=== PATIENT | male | born 1995 | race Caucasian/White ===

== ENCOUNTER 2016-09-03 17:18 | Emergency (ER) | payer OTHER ==
--- NOTE | 2016-09-03 17:31 | EDPHY ---
H & P Time Seen by Provider: 09/03/16 17:31 - Medical/Surgical History Hx Asthma: No Hx Chronic Respiratory Disease: No Hx Diabetes: No Hx Cardiac Disease: No Hx Renal Disease: No Hx Cirrhosis: No Hx Alcoholism: No Hx HIV/AIDS: No Hx Splenectomy or Spleen Trauma: No Other PMH: DENIES - Social History Smoking Status: Never smoked Constitutional: Initial Vital Signs Temperature (C) 34.7 C L 09/03/16 17:18 Heart Rate 71 09/03/16 17:18 Respiratory Rate 16 09/03/16 17:18 Blood Pressure 124/69 H 09/03/16 17:18 O2 Sat (%) 96 09/03/16 17:18 O2 Delivery Mode Room Air Allergies/Adverse Reactions: No Known Allergies Allergy (Unverified 04/16/15 03:28) Home Medications: Medication Instructions Recorded NK [No Known Home Meds] 04/16/15 Medical Decision Making ED Course/Re-evaluation: CHIEF COMPLAINT: alcohol intoxication HISTORY OF PRESENT ILLNESS: 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 Patient was found by bystanders to be severely intoxicated and therefore they called EMS system. He is responsive to pain only and unable to answer questions. He is covered in emesis and smells of alcohol. No further history known. REVIEW OF SYSTEMS: Unobtainable secondary to patient condition. PHYSICAL EXAM: General Appearance: somnolent, difficult to rouse, covered in emesis. Head: Atraumatic without obvious injury Eyes: Pupils equal, round, sluggishly reactive to light and accommodation, no trauma, no injection. Ears: Clear bilaterally, no perforation, normal landmarks Nose: Atraumatic, no rhinorrhea, clear. Throat: atraumatic Neck: atraumatic. Respiratory: No respiratory distress. Lungs are clear to auscultation bilaterally. Cardiovascular: Regular rate and rhythm. Good capillary refill all extremities. Gastrointestinal: Abdomen is soft,non-distended, no masses. Musculoskeletal: No visible trauma. Neurological: Alert to painful stimuli only, unable to answer questions. Movement in all 4 extremities. Skin: No rashes, good turgor, no nodules on palpation. PAST MEDICAL HISTORY: None PAST SURGICAL HISTORY: None SOCIAL HISTORY: Student, single, denies tobacco or drug use, drinks alcohol occasionally MEDICAL DECISION MAKING: I serially examined this patient since the patient's arrival here in the emergency department. The patient continues to become more and more sober with each examination. I serially questioned the patient and the patient's story given initially has not changed. The patient still denies any trauma, any head injury, and any illicit drug use. At this point, the patient is walking the department freely and is clinically sober. We're discharging the patient to the [facility] in stable condition. Departure - Departure Disposition: Home, Routine, Self-Care Clinical Impression: Alcohol intoxication Qualifiers: Complication of substance-induced condition: uncomplicated Qualified Code(s): F10.120 - Alcohol abuse with intoxication, uncomplicated Condition: Good Instructions: Alcohol Intoxication (ED) Additional Instructions: Medially clear for detox. Referrals: [facility] 24 Hours [Outside] - As per Instructions Report Scribed for: John Aragon Report Scribed by: Norma Herman Date of Report: 09/03/16 Time of Report: 17:32
[2016-09-03 20:10] VITALS: BP 124/94; PULSE 110; RESP 18; TEMP 97.5; O2SAT 95
== END 2016-09-03 20:11 | disposition home or self-care (01) ==
LOC: EEVIPCON 17:18
DX: F10.120 Alcohol abuse with intoxication, uncomplicated (principal)